=== PATIENT | female | born 1960 | race Caucasian/White ===

== ENCOUNTER → 2017-01-24 | Outpatient (CLI) | payer BC ==
--- NOTE | 2017-01-24 15:14 | KCIC ---
EXAM: Right foot, 3 views. HISTORY: Trauma. COMPARISON: None. FINDINGS: Frontal, lateral and oblique views of the right foot are obtained. There is no acute fracture, dislocation or subluxation. There is slight degenerative change involving the first metatarsal head with overlying soft tissue prominence. There are 2 mm punctate foreign bodies overlying the soft tissues between the fourth and fifth phalanges. There is slight enthesopathy at the Achilles insertion. IMPRESSION: 1. No acute osseous finding. 2. Tiny foreign bodies overlying the soft tissues between the fourth and fifth phalanges. These may be on the skin surface. Electronically signed by: Clau Goldberg MD (01/24/2017 3:10 PM) [id number]
== END | disposition home or self-care (01) ==
LOC: KCIC 14:55
PROVIDERS: ATTEND Nurse Practitioner Family
DX: S99.921D Unspecified injury of right foot, subsequent encounter (principal); X58.XXXD Exposure to other specified factors, subsequent encounter
CPT/HCPCS: 73630

== ENCOUNTER → 2017-05-07 | Outpatient (CLI) | payer BC | END | disposition home or self-care (01) | LOC: KCIC 09:27 | DX: J10.1 Influenza due to other identified influenza virus with other respiratory manifestations (principal) | CPT/HCPCS: 71046 ==

== ENCOUNTER → 2018-06-11 | Outpatient (CLI) | payer BC ==
--- NOTE | 2018-06-11 11:37 | KCIC ---
EXAM: Chest, 2 views. HISTORY: Cough. COMPARISON: 05/07/2017 FINDINGS: 2 views of the chest are obtained. There is no infiltrate, pleural effusion or pneumothorax. The heart is normal in size. There is stable left perihilar nodular opacity likely due to prominent pulmonary vascular shadows. IMPRESSION: No acute pulmonary finding. Electronically signed by: Clau Goldberg MD (06/11/2018 11:33 AM) [email or web address]
== END | disposition home or self-care (01) ==
LOC: KCIC 11:01
PROVIDERS: ATTEND Nurse Practitioner Family
DX: R06.2 Wheezing (principal); R05 Cough
CPT/HCPCS: 71046